=== PATIENT | female | born 1970 ===

== ENCOUNTER 2021-02-15 14:09 | Emergency (ER) | payer SELFPAY ==
[2021-02-15 14:41] VITALS: BP 147/90
--- NOTE | 2021-02-15 15:23 | Emergency Department Report ---
ED General Adult HPI - General Chief complaint: Allergic Reaction Stated complaint: BODYACHES AND LOWER BACK PAIN PUI?: No Time Seen by Provider: 02/15/21 14:52 Source: patient Mode of arrival: Ambulatory Limitations: No Limitations - History of Present Illness Initial comments: 50-year-old female with a past medical history of chronic back pain currently under the care of pain management, panic attacks and cervical radiculopathy presents to the ER today with concern for possible allergic reaction after receiving IM Decadron injection yesterday. Patient states that she had a flareup of her cervical radiculopathy symptoms over the past 2 weeks. She states that she went to a small urgent care call care [facility] yesterday and they gave her a IM Decadron injection in her right arm which is the same area where she has been having her radiculopathy symptoms. She received 10 mg IM. She states that this morning when she woke up she noticed that her hands and fingers felt tingly, she states that the tingling then moved to her feet, and she had a "brush" of tingling on her face. She states that she had similar symptoms with her panic attacks in the past, and so she thought it was related to her developing a panic attack but she was not sure. She states she has recieved steroid injections before and has never had a reaction from it. So she called the clinic that gave the injection and so they recommend that she come to the hospital because they told her they were not sure if it was related to the steroid injection or if it could be something different. Patient states that since arriving to the ER she has seem to have calmed down. Denies any rash, bruising, difficulty breathing, wheezing, swelling, focal weakness, headache, dizziness, speech changes or any additional symptoms at this time. Complaint: Tingling hands/feet - after steroid injection -: This morning - Related Data Allergies Allergy/AdvReac Type Severity Reaction Status Date / Time butorphanol [From Stadol] Allergy Unknown Verified 02/15/21 14:40 meperidine [From Demerol] Allergy Unknown Verified 02/15/21 14:40 morphine Allergy Unknown Verified 02/15/21 14:40 ED Review of Systems ROS: Stated complaint: BODYACHES AND LOWER BACK PAIN Other details as noted in HPI Comment: All other systems reviewed and negative Constitutional: denies: chills, fever Eyes: as per HPI ENT: denies: ear pain, throat pain Respiratory: denies: cough, shortness of breath, SOB with exertion, SOB at rest, wheezing Cardiovascular: denies: chest pain, palpitations Gastrointestinal: denies: abdominal pain, nausea, vomiting, diarrhea, constipation, hematemesis, hematochezia Genitourinary: denies: urgency, dysuria, discharge Musculoskeletal: back pain (chronic ) Neurological: paresthesias. denies: headache, weakness, numbness, confusion, a bnormal gait, vertigo Psychiatric: anxiety. denies: auditory hallucinations, visual hallucinations, homicidal thoughts, suicidal thoughts Hematological/Lymphatic: denies: easy bleeding, easy bruising, swollen glands ED Physical Exam - General Limitations: No Limitations General appearance: alert, in no apparent distress - Head Head exam: Present: atraumatic, normocephalic, normal inspection - Eye Eye exam: Present: normal appearance, PERRL, EOMI Pupils: Present: normal accommodation - ENT ENT exam: Present: normal exam, mucous membranes moist, TM's normal bilaterally - Neck Neck exam: Present: normal inspection, full ROM. Absent: meningismus - Respiratory Respiratory exam: Absent: normal lung sounds bilaterally, respiratory distress, wheezes, rales, rhonchi - Cardiovascular Cardiovascular Exam: Present: regular rate, normal rhythm, normal heart sounds - Neurological Exam Neurological exam: Present: alert, oriented X3, CN II-XII intact, normal gait - Psychiatric Psychiatric exam: Present: normal affect, normal mood, anxious - Skin Skin exam: Present: intact ED Course Vital Signs 02/15/21 14:33 Temperature 98.5 F Pulse Rate 104 H Respiratory 17 Rate Blood Pressure 147/90 O2 Sat by Pulse 99 Oximetry ED Medical Decision Making - Lab Data Result diagrams: 02/15/21 15:56 02/15/21 15:56 - Medical Decision Making 50-year-old female with a past medical history of chronic back pain currently under the care of pain management, panic attacks and cervical radiculopathy presents to the ER today with concern for possible allergic reaction after receiving IM Decadron injection yesterday. Patient states that she had a flareup of her cervical radiculopathy symptoms over the past 2 weeks. She states that she went to a small urgent care call [facility] yesterday and they gave her a IM Decadron injection in her right arm which is the same area where she has been having her radiculopathy symptoms. She received 10 mg IM. She states that this morning when she woke up she noticed that her hands and fingers felt tingly, she states that the tingling then moved to her feet, and she had a "brush" of tingling on her face. She states that she had similar symptoms with her panic attacks in the past, and so she thought it was related to her developing a panic attack but she was not sure. She states she has recieved steroid injections before and has never had a reaction from it. So she called the clinic that gave the injection and so they recommend that she come to the hospital because they told her they were not sure if it was related to the steroid injection or if it could be something different. Patient states that since arriving to the ER she has seem to have calmed down. Denies any rash, bruising, difficulty breathing, wheezing, swelling, focal weakness, headache, dizziness, speech changes or any additional symptoms at this time. 1700: Patient does appear mildly anxious but overall she is not toxic or ill- appearing and not in any significant distress. She has no focal neurological deficit on exam. She has a normal gait in the ER. Her vital signs are stable. She is hemodynamically stable. labs reviewed --CBC unremarkable. BMP shows some elevation of glucose at 138 but otherwise was unremarkable. Symptoms could be related to medication side effect but also suspect anxiety. At this time I do not suspect a CVA/TIA, meningitis or any other acute intracranial abnormalities, anaphylaxis, or any other significant emergent conditions warranting any additional testing at this time or admission, reassured patient that it is related to a side effect of the Decadron, and will eventually wear off. But I also recommend follow-up with PCP for management of anxiety. Elevated glucose today could be related to the fact that she did eat prior to coming in, and you could also be related to the steroid injection she received but at this time there is no indication for starting any treatment pending recommend that she follows up with her PCP for continued monitoring of her diabetes. Patient expressed understanding of all instructions and agree with plan. Patient stable at time of discharge. Critical care attestation.: If time is entered above; I have spent that time in minutes in the direct care of this critically ill patient, excluding procedure time. ED Disposition Clinical Impression: Medication side effects, Anxiety reaction Disposition: 01 HOME / SELF CARE / HOMELESS Is pt being admited?: No Does the pt Need Aspirin: No Condition: Stable Instructions: Drug Allergy, [id number], Managing Anxiety, Adult Additional Instructions: The side effects should eventually wear off. I do suspect that your anxiety may have contributed to your symptoms and so I do recommend follow up with your PCP to discuss anxiety management. Your blood sugar was elevated at 138 today, this could be related to what you ate prior to coming in or eventhe steroid injection. At this time there is no patient to initiate any medication for diabetes, he does need to follow-up closely with your PCP to continue monitoring your sugar. Continue to follow up with your bottom painter for continued pain control. Return to ED if your symptoms changes or worsens. Referrals: PRIMARY CARE, [Primary Care Provider] - 3-5 Days Time of Disposition: 16:57
[2021-02-15 16:19] LABS: Basophils # (Auto) 0.1 K/mm3 (0.0-0.1); Hematocrit 35.4 % (30.3-42.9); Hemoglobin 11.5 gm/dl (10.1-14.3); Lymphocytes # (Auto) 1.2 K/mm3 (1.2-5.4); Lymphocytes % (Auto) 11.2 % (13.4-35.0); Mean Corpuscular HGB Conc 32 % (30-34); Mean Corpuscular Volume 88 fl (79-97); Monocytes # (Auto) 0.6 K/mm3 (0.0-0.8); Monocytes % (Auto) 5.6 % (0.0-7.3); Platelet Count 325 K/mm3 (140-440); Red Cell Distribution Width 14.5 % (13.2-15.2)
[2021-02-15 16:40] LABS: Blood Urea Nitrogen 12 mg/dL (7-17); Calcium 9.1 mg/dL (8.4-10.2); Hemolysis Index 8
[2021-02-15 16:47] LABS: BUN/Creatinine Ratio 17
== END 2021-02-15 17:11 | disposition home or self-care (01) ==
LOC: ED 14:09
DX: F41.9 Anxiety disorder, unspecified (principal); T38.0X5A Adverse effect of glucocorticoids and synthetic analogues, initial encounter; M54.12 Radiculopathy, cervical region; G89.29 Other chronic pain; Z88.5 Allergy status to narcotic agent; Z79.899 Other long term (current) drug therapy; Z88.8 Allergy status to other drugs, medicaments and biological substances; Y92.89 Other specified places as the place of occurrence of the external cause
CPT/HCPCS: 36415; 80048; 85025; 99283

== ENCOUNTER 2021-03-24 03:55 | Emergency (ER) | payer SELFPAY | END 2021-03-24 05:10 | disposition left against medical advice (07) | LOC: ED 03:55 | DX: B37.9 Candidiasis, unspecified (principal); Z53.21 Procedure and treatment not carried out due to patient leaving prior to being seen by health care provider ==

== ENCOUNTER 2021-03-28 09:36 | Emergency (ER) | payer SELFPAY | END 2021-03-28 09:40 | disposition left against medical advice (07) | LOC: ED 09:36 | DX: N89.8 Other specified noninflammatory disorders of vagina (principal); Z53.21 Procedure and treatment not carried out due to patient leaving prior to being seen by health care provider ==